=== PATIENT | male | born 1975 | race Caucasian/White ===

== ENCOUNTER 2018-09-17 15:36 | Emergency (ER) | payer SELFPAY ==
[~2018-09-17] VITALS: Ht 172.7 cm; Wt 106.6 kg
[2018-09-17 15:41] VITALS: Ht 172.7 cm; Wt 106.6 kg
[2018-09-17 19:17] VITALS: BP 120/76
== END 2018-09-17 19:17 | disposition home or self-care (01) ==
LOC: ED 15:36
DX: S42.001A Fracture of unspecified part of right clavicle, initial encounter for closed fracture (principal); J32.9 Chronic sinusitis, unspecified; J40 Bronchitis, not specified as acute or chronic; X58.XXXA Exposure to other specified factors, initial encounter; Y93.89 Activity, other specified; Y92.89 Other specified places as the place of occurrence of the external cause; Y99.8 Other external cause status
CPT/HCPCS: 87804

== ENCOUNTER 2018-12-10 23:09 | Emergency (ER) | payer BC ==
[~2018-12-10] VITALS: Ht 172.7 cm; Wt 107.0 kg
[2018-12-10 23:22] VITALS: Ht 172.7 cm; Wt 107.0 kg
[2018-12-11 00:05] LABS: CALCIUM 8.1 mg/dL (8.5-10.1); CARBON DIOXIDE 26.3 mmol/L (21-32); CHLORIDE SERUM 104 mmol/L (98-107); CREATININE SERUM 0.9 mg/dL (0.7-1.3); GFR1 > 60 mL/min; GLUCOSE SERUM 120 mg/dL (74-106); POTASSIUM SERUM 3.7 mmol/L (3.5-5.1); SODIUM SERUM 141 mmol/L (136-145)
[2018-12-11 00:09] LABS: ALBUMIN 3.6 g/dL (3.4-5.0); ALKALINE PHOSPHATASE 96 U/L (46-116); ALT/SGPT 86 U/L (16-63); AST/SGOT 32 U/L (15-37); BILIRUBIN TOTAL 0.4 mg/dL (0.20-1.00); LIPASE 219 IU/L (73-393)
[2018-12-11 00:14] LABS: BASOPHIL % 0.6 % (0-2); PLATELET COUNT 197 x10^3mcL (130-400); RED CELL DISTRIBUTION WIDTH 12.4 % (11.5-14.5)
[2018-12-11 00:26] VITALS: BP 118/80
== END 2018-12-11 00:26 | disposition home or self-care (01) ==
LOC: ED 23:09
PROVIDERS: Emergency Medicine
DX: K76.0 Fatty (change of) liver, not elsewhere classified (principal)
CPT/HCPCS: 36415

== ENCOUNTER 2019-05-05 13:38 | Emergency (ER) | payer BC ==
[~2019-05-05] VITALS: Ht 167.6 cm; Wt 107.5 kg
[2019-05-05 13:46] VITALS: Ht 167.6 cm; Wt 107.5 kg
[2019-05-05 15:01] VITALS: BP 150/81
== END 2019-05-05 15:01 | disposition home or self-care (01) ==
LOC: ED 13:38
DX: S80.812A Abrasion, left lower leg, initial encounter (principal); X58.XXXA Exposure to other specified factors, initial encounter; Y93.64 Activity, baseball; Y92.89 Other specified places as the place of occurrence of the external cause; Y99.8 Other external cause status

== ENCOUNTER 2019-06-19 22:42 | Emergency (ER) | payer BC ==
[~2019-06-19] VITALS: Ht 175.3 cm; Wt 107.0 kg
[2019-06-19 22:51] VITALS: Ht 175.3 cm; Wt 107.0 kg
[2019-06-19 23:57] LABS: BASOPHIL % 0.6 % (0-2); PLATELET COUNT 164 x10^3mcL (130-400); RED CELL DISTRIBUTION WIDTH 13.2 % (11.5-14.5)
[2019-06-20 00:06] LABS: ALBUMIN 3.5 g/dL (3.4-5.0); ALKALINE PHOSPHATASE 102 U/L (46-116); ALT/SGPT 97 U/L (16-63); AST/SGOT 42 U/L (15-37); BILIRUBIN TOTAL 0.4 mg/dL (0.20-1.00); CALCIUM 8.2 mg/dL (8.5-10.1); CARBON DIOXIDE 29.1 mmol/L (21-32); CHLORIDE SERUM 107 mmol/L (98-107); GFR1 > 60 mL/min; GLUCOSE SERUM 132 mg/dL (74-106); POTASSIUM SERUM 3.6 mmol/L (3.5-5.1); SODIUM SERUM 142 mmol/L (136-145)
[2019-06-20 01:30] VITALS: BP 126/76
== END 2019-06-20 01:30 | disposition home or self-care (01) ==
LOC: ED 22:42
PROVIDERS: Emergency Medicine
DX: M25.562 Pain in left knee (principal)
CPT/HCPCS: 36415; Q0092

== ENCOUNTER 2019-09-07 19:08 | Emergency (ER) | payer BC ==
[~2019-09-07] VITALS: Ht 175.3 cm; Wt 109.3 kg
[2019-09-07 19:48] VITALS: Ht 175.3 cm; Wt 109.3 kg
[2019-09-07 23:56] VITALS: BP 116/99
== END 2019-09-08 00:30 | disposition home or self-care (01) ==
LOC: ED 19:08
DX: J11.1 Influenza due to unidentified influenza virus with other respiratory manifestations (principal)
CPT/HCPCS: 82962; J1100; J1885